=== PATIENT | female | born 1990 | race African-American/Black ===

== ENCOUNTER 2022-12-30 12:22 | Emergency (ER) | payer SELFPAY | END 2022-12-30 13:11 | disposition home or self-care (01) | LOC: CSHERS 12:22 | DX: B34.9 Viral infection, unspecified (principal); J32.9 Chronic sinusitis, unspecified; K04.7 Periapical abscess without sinus; F17.210 Nicotine dependence, cigarettes, uncomplicated | CPT/HCPCS: 99283 ==

== ENCOUNTER 2023-01-29 21:27 | Emergency (ER) | payer SELFPAY | END 2023-01-29 22:20 | disposition home or self-care (01) | LOC: CSHERS 21:27 | DX: H61.21 Impacted cerumen, right ear (principal); Z87.891 Personal history of nicotine dependence | CPT/HCPCS: 99282 ==

== ENCOUNTER 2023-02-22 10:24 | Emergency (ER) | payer SELFPAY ==
[2023-02-22] MEDS ORDERED: Ketorolac Tromethamine 30 MG/ML VIAL ONE (12:21)
[2023-02-22] MEDS ORDERED: HYDROcodone/Acetaminophen 5/325 mg Tablet ONE (12:21)
== END 2023-02-22 13:02 | disposition home or self-care (01) ==
LOC: CSHERS 10:24
DX: K02.9 Dental caries, unspecified (principal)
CPT/HCPCS: 96372; 99282; J1885